=== PATIENT | male | born 1995 | race Caucasian/White ===

== ENCOUNTER 2017-04-18 09:38 | Emergency (ER) | payer BC ==
[2017-04-18 09:53] VITALS: BP 150/76
[2017-04-18] MEDS ORDERED: Lidocaine 1% MPF* 2 ML VIAL INJ ONE (10:12)
--- NOTE | 2017-04-18 10:39 | UC ---
Satya Topete Abhishek, scribed for Shantelle Bernstein MD on 04/18/17 at 1018 . Laceration HPI - HPI Summary HPI Summary: This patient is a 22 year old M presenting to [facility] with a chief complaint of skin laceration . The pt describes the skin laceration as two separate cuts on the left pointer finger with a brand new box toe cutter. Prior to [facility] arrival, the pt reports bleeding from area of laceration, however, currently there are no reports of bleeding. Tdap UTD. Glove was worn during the onset of the injury. The patient rates the pain 1/10 in severity. Symptoms aggravated by nothing. Symptoms alleviated by nothing. Patient denies decreased sensation in the area of laceration. No analgesia. Little "sting" pain. Medications and immunizations reviewed during this visit. - History Of Current Complaint Chief Complaint: UCLaceration Stated Complaint: FINGER LACERATION Time Seen by Provider: 04/18/17 09:49 Hx Obtained From: Patient, Family/Electronic Installer Laceration Location: Finger - left index finger Mechanism Of Injury: Sharp Trauma - "box toe cutter" Onset/Duration: Sudden Onset, Lasting Hours - since two hours ago Pain Intensity: 1 Pain Scale Used: 0-10 Numeric Aggravating Factors: Nothing - Allergies/Home Medications Allergies/Adverse Reactions: Allergies Allergy/AdvReac Type Severity Reaction Status Date / Time No Known Allergies Allergy Verified 04/18/17 09:54 Home Medications: Home Medications NK [No Home Medications Reported] 04/18/17 [History Confirmed 04/18/17] PMH/Surg Hx/FS Hx/Imm Hx Previously Healthy: Yes - Surgical History Surgical History: Yes Surgery Procedure, Year, and Place: hernia age 8 - Family History Known Family History: Negative: Cardiac Disease, Hypertension, Diabetes - Social History Occupation: Employed Full-time Lives: Alone Alcohol Use: None Substance Use Type: None Smoking Status (MU): Never Smoked Tobacco Have You Smoked in the Last Year: No - Immunization History Most Recent Influenza Vaccination: 2017 Most Recent Tetanus Shot: 2017 Review of Systems Constitutional: Negative Skin: Other - laceration of the left index finger. Eyes: Negative ENT: Negative Respiratory: Negative Cardiovascular: Negative Gastrointestinal: Negative Genitourinary: Negative Motor: Negative Neurovascular: Negative - Negative decreased sensations Musculoskeletal: Negative Neurological: Negative Psychological: Negative All Other Systems Reviewed And Are Negative: Yes Physical Exam Triage Information Reviewed: Yes Appearance: Well-Appearing, No Pain Distress, Well-Nourished Vital Signs: Initial Vital Signs Temp 100.5 F 04/18/17 09:49 Pulse 106 04/18/17 09:49 Resp 20 04/18/17 09:49 BP 150/76 04/18/17 09:49 Pulse Ox 96 04/18/17 09:49 Vital Signs Reviewed: Yes Eye Exam: Normal ENT Exam: Normal ENT: Positive: Hearing grossly normal Neck: Positive: Supple Respiratory: Positive: No respiratory distress, No accessory muscle use Cardiovascular: Positive: Other: - 2+ radial 2+ ulnar CBT< 2 sec Musculoskeletal Exam: Normal Musculoskeletal: Positive: Other: - + flex/ext pip, dip, mcp against resistance Neurological: Positive: Other: - + gross sensation throughout finger Psychological Exam: Normal Skin: Positive: Other - Pt with 1cm laceration lateral aspect finger gapping wound. superficial, non suturable abrasion 3cm left finger no bleeding, no gap in wound Laceration Repair - Laceration Repair 1035 Description: Linear - Time out completed at bedside usual sterile wound prep wound anethesized irrigated with 100ml sterile saline sutured with 2 simple interrupted pt tolerated well d/w pt wound care s/s infection Laceration Size After Repair: Length (cm) - 1 cm. Anesthesia Used: 2.0% Lido - no epi Cleansing Completed Via Routine Prep: Yes Irrigation With Pressure Irrigation Device: No Closure Material: Sutures Closure Method: Single Layer Suture Of: Skin - Two sultures; Irrigated; Time out done Suture Type: Other - 4-0 Prolene Laceration Course/Dx - Course/Dx Course Of Treatment: Pt with wound [employer]IL[employer]INE[employer] to left hand with new knife blade. Pt with 1 superficial non suturable wound. 2 sutures placed in second wound. tdap utd. reviewed with pt wound care, suture removal. Pt comfortable and in agreement with plan. Pt declined analgesia - Differential Dx - Laceration/Wound Provider Diagnoses: laceration, finger Discharge - Discharge Plan Condition: Stable Disposition: AGAINST MEDICAL ADVICE Patient Education Materials: Finger Laceration (ED) Referrals: No Primary Care Phys,NOPCP [Primary Care Provider] - Additional Instructions: -Anticipate increased discomfort over the next several hours as the numbing medication wears off -Keep your wound clean and dry for the first 24 hours. Then, okay to get wet - pat dry, don't rub -Cover with a thin layer of antibiotic ointment such as neosporin or polysporin and bandage -Sutures should come out in 8-10 days. .Contact your doctor or return to the urgency care -Monitor your wound for signs of infection - reddness, red streaking, odor pus, or increased pain -Contact your doctor or return with any questions or concerns The documentation as recorded by the Satya sahu Abhishek accurately reflects the service I personally performed and the decisions made by me, Shantelle Bernstein MD.
== END 2017-04-18 10:34 | disposition left against medical advice (07) ==
LOC: UCEAST 09:38
DX: S61.211A Laceration without foreign body of left index finger without damage to nail, initial encounter (principal); W26.0XXA Contact with knife, initial encounter; Y92.9 Unspecified place or not applicable
CPT/HCPCS: 12001; 96372; 99211; G0463